=== PATIENT | male | born 1995 | race African-American/Black ===

== ENCOUNTER 2017-02-25 14:32 | Emergency (ER) | payer MEDICAID, SELFPAY ==
[~2017-02-25] VITALS: Ht 198.1 cm; Wt 72.6 kg
[~2017-02-25 14:32] MED LIST: PROZ20CA11 PO; TENE1TAB PO; TRAZ50TA4 PO; no home medications
[2017-02-25 14:33] VITALS: BP 130/84
[2017-02-25] MEDS ORDERED: BUSP15TA47 PO (14:41)
[2017-02-25] MEDS ORDERED: ALPR2TAB3 PO (14:41)
[2017-02-25] MEDS ORDERED: HYDR25T PO (16:27)
== END 2017-02-25 17:03 | disposition home or self-care (01) ==
LOC: M ED 16:35
DX: F41.9 Anxiety disorder, unspecified (principal); F42.9 Obsessive-compulsive disorder, unspecified; F17.200 Nicotine dependence, unspecified, uncomplicated; Z91.013 Allergy to seafood; Z79.899 Other long term (current) drug therapy

== ENCOUNTER 2023-09-11 05:07 | Emergency (ER) | payer SELFPAY ==
[~2023-09-11] VITALS: Ht 200.7 cm; Wt 88.6 kg
[~2023-09-11 05:07] MED LIST changes: +ALPR2TAB3 PO; +BUSP15TA47 PO; +HYDR-3363 PO; +TRAZ-252 PO; -TRAZ50TA4 PO
[2023-09-11 05:16] VITALS: TEMP 96
[2023-09-11 07:39] VITALS: BP 134/82; O2SAT 100
== END 2023-09-11 09:20 | disposition home or self-care (01) ==
LOC: M ED 05:07 → EDBD 05:07 → M ED 09:20
DX: Z00.8 Encounter for other general examination (principal); Z59.02 Unsheltered homelessness; F17.210 Nicotine dependence, cigarettes, uncomplicated; Z91.013 Allergy to seafood; Z79.899 Other long term (current) drug therapy

== ENCOUNTER → 2023-12-08 | Outpatient (REF) | payer OTHER, MEDICAID ==
[~2023-12-08] MED LIST changes: +BUSP1TAB; +CLON-412; +HYDR50TA70; +LORA1TAB23; +PRAZ2CAP
== END ==
LOC: M LAB REF 18:39
PROVIDERS: ATTEND Physician Assistant Medical
DX: R07.0 Pain in throat (principal)

== ENCOUNTER 2023-12-10 06:37 | Emergency (ER) | payer MEDICAID, OTHER ==
[~2023-12-10] VITALS: Ht 200.7 cm; Wt 95.6 kg
[~2023-12-10 06:37] MED LIST changes: -BUSP1TAB; -CLON-412; -HYDR50TA70; -LORA1TAB23; -PRAZ2CAP
[2023-12-10] MEDS ORDERED: BUSP1TAB (07:45)
[2023-12-10] MEDS ORDERED: HYDR50TA70 (07:45)
[2023-12-10] MEDS ORDERED: LORA1TAB23 (07:45)
[2023-12-10] MEDS ORDERED: PRAZ2CAP (07:45)
[2023-12-10] MEDS ORDERED: CLON-412 (07:45)
[2023-12-10 09:58] VITALS: O2SAT 99
[2023-12-10] MEDS: dexAMETHasone 4 MG TAB PO ONE (10:28)
[2023-12-10] MEDS: ACETAMINOPHEN 500 MG TAB PO ONE (10:28)
[2023-12-10 11:45] VITALS: BP 112/64; TEMP 97.6
== END 2023-12-10 11:53 | disposition home or self-care (01) ==
LOC: M ED 06:37
DX: J02.9 Acute pharyngitis, unspecified (principal); S00.411A Abrasion of right ear, initial encounter; X58.XXXA Exposure to other specified factors, initial encounter; Y92.9 Unspecified place or not applicable; Y93.9 Activity, unspecified; Y99.9 Unspecified external cause status; Z88.8 Allergy status to other drugs, medicaments and biological substances; Z91.013 Allergy to seafood